=== PATIENT | male | born 1940 | race Caucasian/White ===

== ENCOUNTER → 2017-02-20 | Outpatient (CLI) | payer MEDICARE, OTHER ==
[~2017-02-20] MED LIST: ASCO500 PO; ASPI81CH PO; ASPI81EC PO; ATOR10 PO; ATOR40TA PO; CALCA500CH PO; CHOL10002 PO; CLOP75 PO; CYAN100 PO; DONE10 PO; DOXE10 PO; GLUCHON PO; LOSHYD PO; MULVITMINF PO; OMEG1CAP30 PO; RED YEAST RICE; ROSU5 PO; TOCO400 PO; UBID100 PO
== END ==
LOC: PLD 08:12 → LAB SHORT 08:12
DX: L98.9 Disorder of the skin and subcutaneous tissue, unspecified (principal)
CPT/HCPCS: 88305; 88313

== ENCOUNTER 2018-07-23 22:23 | Observation (INO) | payer MEDICARE, OTHER ==
[~2018-07-23] VITALS: Ht 177.8 cm; Wt 98.5 kg
[2018-07-23] MEDS ORDERED: LOSA25 PO (22:42)
[2018-07-23] MEDS ORDERED: TIMO.25OPS BOTHEYES (22:44)
[2018-07-23] MEDS ORDERED: ASPIRIN-DIPYRI1 EACH PO (22:44)
[2018-07-23] MEDS ORDERED: CALCITRATE200 MG PO (22:45)
[2018-07-23] MEDS ORDERED: Co Q-10300 MG PO (22:46)
[2018-07-23] MEDS ORDERED: CENTRUM SILVER1 EAC4 PO (22:46)
[2018-07-23] MEDS ORDERED: ASCO500 PO (22:46)
[2018-07-23] MEDS ORDERED: FISH OIL 1,001000 MG PO (22:46)
[2018-07-23] MEDS ORDERED: INTRINSI B12-F1 EACH PO (22:47)
[2018-07-23] MEDS ORDERED: TOCO1000 PO (22:47)
[2018-07-23] MEDS ORDERED: GLUC500 PO (22:48)
[2018-07-23] MEDS ORDERED: VITAMIN D-32000 UNIT PO (22:48)
[2018-07-24 00:20] LABS: BASOPHILS ABSOLUTE AUTO 0.02 K/mm3 (0.00-0.23); BASOPHILS PERCENT AUTO 0 % (0-2); EOSINOPHILS PERCENT AUTO 6 % (0-6); Hematocrit 39.6 % (37.0-53.0); Hemoglobin 13.2 g/dL (13.5-17.5); IMMATURE GRAN ABSOLUTE AUTO 0.02 K/mm3 (0.00-0.10); IMMATURE GRAN PERCENT AUTO 0 % (0-1); LYMPHOCYTES ABSOLUTE AUTO 0.68 K/mm3 (0.84-5.20); LYMPHOCYTES PERCENT AUTO 15 % (21-46); MONOCYTES ABSOLUTE AUTO 0.47 K/mm3 (0.16-1.47); MONOCYTES PERCENT AUTO 10 % (4-13); Mean Corpuscular HGB Conc 33.3 g/dL (31.5-36.5); Mean Corpuscular Volume 102 fL (80-100); Mean Platelet Volume 10.2 fL (9.1-12.4); NEUTROPHILS ABSOLUTE AUTO 3.19 K/mm3 (1.96-9.15); NEUTROPHILS PERCENT AUTO 68 % (41-73); Platelet Count 190 K/mm3 (150-400); RDW Coefficient Variation 13.4 % (11.7-14.2); RDW Standard Deviation 50.4 fL (35.1-46.3); Red Blood Cell Count 3.88 M/mm3 (4.30-5.90); White Blood Cell Count 4.68 K/mm3 (4.00-11.30)
[2018-07-24 00:40] LABS: International Normalized Ratio 0.98; Prothrombin Time Results 10.4 Sec (9.7-11.5)
[2018-07-24 01:07] LABS: Alanine Aminotransfer (ALT/SGP 23 U/L (12-78); Albumin, Blood 3.4 g/dL (3.4-5.0); Albumin/Globulin Ratio 1.2 (0.8-1.8); Alk Phos 78 U/L (50-136); Anion Gap 8 mmol/L (6-16); Aspartate Aminotrans (AST/SGOT 20 U/L (12-37); Blood Urea Nitrogen 16 mg/dL (8-24); Bun/Creatinine Ratio 20.5 (12.0-20.0); CO2, Blood 25 mmol/L (21-32); Calcium, Blood 8.8 mg/dL (8.5-10.1); Chloride, Blood 113 mmol/L (98-108); Creatinine, Blood 0.78 mg/dL (0.60-1.20); Globulin, Blood 2.9 g/dL (2.2-4.0); Glomerular Filtration Rate >60 (60-); Glucose, Blood 109 mg/dL (70-99); Sodium, Blood 146 mmol/L (136-145); Total Protein, Blood 6.3 g/dL (6.4-8.2)
[2018-07-24 13:25] LABS: Cholesterol 121 mg/dL (50-200); HDL Cholesterol 62 mg/dL (>39); LDL/HDL RATIO 0.6; Low Density Lipoprotein Chol 40 mg/dL (0-110); Triglycerides 97 mg/dL (30-160); Very Low Density Lipoprot Chol 19 mg/dL (6-32)
[2018-07-24] MEDS ORDERED: ASPI325 PO (17:18)
[2018-07-24] MEDS ORDERED: LOSARTAN-HCTZ1 EACH PO (17:18)
--- NOTE | 2018-07-24 17:47 | NUR ---
AWARE TO STOP TAKING AGGRENOX AND START TAKING ASA 325. HAS APPT TOMORROW W/BARBIE Borja @ 10 AM. AWARE TO CALL AND SEE HIM WITHIN THE WEEK.ANSWER ALL QUESTIONS. IN W/C DOWN TO 2ND FLOOR FOR [facility].
== END 2018-07-24 17:43 | disposition home or self-care (01) ==
LOC: ER 22:23 → ERHOLD 22:24 → MEDS 22:24 → ENPENDDIS 07-24 16:50 → MEDS 07-24 17:43
PROVIDERS: Emergency Medicine; Family Medicine; ADMIT Hospitalist
DX: I63.9 Cerebral infarction, unspecified (principal); G45.9 Transient cerebral ischemic attack, unspecified; I10 Essential (primary) hypertension; E78.5 Hyperlipidemia, unspecified; R41.3 Other amnesia; Z86.73 Personal history of transient ischemic attack (TIA), and cerebral infarction without residual deficits; E55.9 Vitamin D deficiency, unspecified; Z87.891 Personal history of nicotine dependence; Z79.899 Other long term (current) drug therapy; Z79.82 Long term (current) use of aspirin
CPT/HCPCS: 36415; 70450; 70496; 70498; 70551; 80053; 80061; 85025; 85610; 85730; 93005; 93010; 99285-25; G0378; J1650; Q9967

== ENCOUNTER → 2019-11-12 | Outpatient (CLI) | payer MEDICARE, OTHER ==
[~2019-11-12] MED LIST changes: +ASPI325 PO; +ASPIRIN-DIPYRI1 EACH PO; +CALCITRATE200 MG PO; +CENTRUM SILVER1 EAC4 PO; +Co Q-10300 MG PO; +FISH OIL 1,001000 MG PO; +GLUC500 PO; +INTRINSI B12-F1 EACH PO; +LOSA25 PO; +LOSARTAN-HCTZ1 EACH PO; +TIMO.25OPS BOTHEYES; +TOCO1000 PO; +VITAMIN D-32000 UNIT PO
== END | disposition home or self-care (01) ==
LOC: LAB 11:36 → LAB SHORT 11:36
DX: D48.5 Neoplasm of uncertain behavior of skin (principal)
CPT/HCPCS: 88305

== ENCOUNTER → 2020-01-07 | Outpatient (CLI) | payer MEDICARE, OTHER | END | disposition home or self-care (01) | LOC: LAB SHORT 14:19 → PLD 14:19 | DX: C44.622 Squamous cell carcinoma of skin of right upper limb, including shoulder (principal) | CPT/HCPCS: 88305 ==